=== PATIENT | female | born 1955 | race Caucasian/White ===

== ENCOUNTER 2019-01-26 08:15 | Day surgery (SDC) | payer MEDICARE, BC ==
[2019-01-26] MEDS ORDERED: LIDOCAINE 2% (SDV) 5 ML INJ (10:37)
[2019-01-26] MEDS ORDERED: PROPOFOL 40 ML (10:37)
[2019-01-26] MEDS ORDERED: FENTAnyl 50 MCG/ML VIAL (10:37)
[2019-01-26] MEDS ORDERED: PROPOFOL 200 MG INJ (10:37)
== END 2019-01-26 13:51 | disposition home or self-care (01) ==
LOC: GIL 08:15
DX: R19.4 Change in bowel habit (principal); K64.8 Other hemorrhoids; K44.9 Diaphragmatic hernia without obstruction or gangrene; K21.9 Gastro-esophageal reflux disease without esophagitis; K29.60 Other gastritis without bleeding; E11.9 Type 2 diabetes mellitus without complications; E78.5 Hyperlipidemia, unspecified; Z79.84 Long term (current) use of oral hypoglycemic drugs
CPT/HCPCS: 43239; 82962; 88305; 88312